=== PATIENT | female | born 1965 | race Caucasian/White ===

== ENCOUNTER 2020-01-15 00:49 | Emergency (ER) | payer SELFPAY ==
[~2020-01-15] VITALS: Ht 165.1 cm; Wt 83.9 kg
[2020-01-15 00:56] VITALS: Ht 165.1 cm; Wt 83.9 kg
[2020-01-15 03:59] VITALS: BP 141/85
== END 2020-01-15 03:59 | disposition home or self-care (01) ==
LOC: ED 00:49
DX: S09.8XXA Other specified injuries of head, initial encounter (principal); H11.31 Conjunctival hemorrhage, right eye; Y04.0XXA Assault by unarmed brawl or fight, initial encounter; Y93.89 Activity, other specified; Y92.89 Other specified places as the place of occurrence of the external cause; Y99.8 Other external cause status
CPT/HCPCS: J1885